=== PATIENT | female | born 1975 | race Hispanic/Latino ===

== ENCOUNTER 2021-11-07 14:15 | Emergency (ER) | payer OTHER, SELFPAY ==
--- OUTSIDE RECORDS SUMMARY | 2021-11-07 14:22 | XMS REPORT | Continuity of Care Document ---
:1975 Author Organization [facility] [place] [facility] t Address [address] Russell [address] [place] [id number] Care Team Providers Name Role Phone Unavailable Unavailable Unavailable Problems This patient has no known problems. Allergies, Adverse Reactions, Alerts This patient has no known allergies or adverse reactions. Medications This patient has no known medications. Procedures This patient has no known procedures. Results This patient has no known results.
--- NOTE | 2021-11-07 17:18 | ER ---
Nurse's Notes [facility] Name: Marva Becerra Age: 46 yrs Sex: Female : 1975 Arrival Date: 11/07/2021 Time: 14:20 Bed DIS3 Private MD: Diagnosis: SARS-associated coronavirus as the cause of diseases classified elsewhere Presentation: 11/07 14:38 Chief complaint: Patient states: Cough, diarrhea, nausea X 1 day. Coronavirus screen: ld1 Client presents with at least one sign or symptom that may indicate coronavirus-19. Standard/surgical mask placed on the client. Ebola Screen: No symptoms or risks identified at this time. Initial Sepsis Screen: Does the patient meet any 2 criteria? No. Patient's initial sepsis screen is negative. Does the patient have a suspected source of infection? No. Patient's initial sepsis screen is negative. Risk Assessment: Do you want to hurt yourself or someone else? Patient reports no desire to harm self or others. Onset of symptoms was November 07, 2021. 14:38 Method Of Arrival: Ambulatory ld1 14:38 Acuity: LETICIA 4 ld1 Triage Assessment: 14:39 General: Appears in no apparent distress. comfortable, Behavior is calm, cooperative, ld1 appropriate for age. Pain: Denies pain. EENT: No signs and/or symptoms were reported regarding the EENT system. Neuro: Level of Consciousness is awake, alert, obeys commands, Oriented to person, place, time, situation. Cardiovascular: Capillary refill < 3 seconds Patient's skin is warm and dry. Respiratory: Airway is patent Respiratory effort is even, unlabored. GI: Abdomen is round non-distended. : No signs and/or symptoms were reported regarding the genitourinary system. Derm: No signs and/or symptoms reported regarding the dermatologic system. Musculoskeletal: No signs and/or symptoms reported regarding the musculoskeletal system. [employer]: 14:39 LMP 11/07/2021 ld1 Historical: - Allergies: 14:39 No Known Allergies; ld1 - Home Meds: 14:39 None [Active]; ld1 - PMHx: 14:39 None; ld1 - PSHx: 14:39 tubal ligation; ld1 - Immunization history:: Adult Immunizations up to date, Client reports having NOT received the Covid vaccine. - Social history:: Smoking status: Patient reports the use of cigarette tobacco products, smokes one-half pack cigarettes per day, Patient/guardian denies using alcohol. Screenin:30 Abuse screen: Denies threats or abuse. Denies injuries from another. Nutritional ss screening: No deficits noted. Tuberculosis screening: Never had TB. Fall Risk None identified. Assessment: 17:30 General: Appears in no apparent distress. comfortable, Behavior is calm, cooperative, ss Denies fever. Neuro: Level of Consciousness is awake, alert, obeys commands, Oriented to person, place, time, situation. Respiratory: Airway is patent Respiratory effort is even, unlabored, Respiratory pattern is regular, symmetrical. EENT: Oral mucosa is moist. Derm: Skin is intact, is healthy with good turgor, Skin is pink, warm \\T\\ dry. normal. Vital Signs: 14:38 BP 153 / 93; Pulse 105; Resp 18; Temp 97.5(TE); Pulse Ox 96% on R/A; Weight 113.4 kg; ld1 Height 5 ft. 3 in. (160.02 cm); Pain 0/10; 14:38 Body Mass Index 44.29 (113.40 kg, 160.02 cm) ld1 ED Course: 14:20 Patient arrived in ED. am2 14:27 Rogers Cross PA is PHCP. cp 14:27 Spike Bashir MD is Attending Physician. cp 14:39 Triage completed. ld1 14:39 Arm band placed on right wrist. ld1 14:41 COVID-19 SARS RT PCR (Document "Date of Onset" if Symptomatic) Sent. ld1 17:30 Patient has correct armband on for positive identification. ss 17:50 Rakel Marroquin, RN is Primary Nurse. ss 18:04 No provider procedures requiring assistance completed. Patient did not have IV access ss during this emergency room visit. Administered Medications: No medications were administered Medication: 17:30 VIS not applicable for this client. ss Outcome: 17:18 Discharge ordered by . cp 17:30 Discharged to home ambulatory, with family. ss 17:30 Condition: good 17:30 Discharge instructions given to patient, Instructed on discharge instructions, follow up and referral plans. Demonstrated understanding of instructions, follow-up care. 18:06 Patient left the ED. ss Signatures: Rakel Marroquin RN RN ss Rogers Cross PA PA cp Moreno, Amanda amTrisha Ventura RN RN ld1 Corrections: (The following items were deleted from the chart) 14:40 14:39 PSHx: None; ld1 ld1
--- NOTE | 2021-11-07 17:18 | EDPHYS ---
Physician Documentation [facility] Name: Marva Becerra Age: 46 yrs Sex: Female : 1975 Arrival Date: 11/07/2021 Time: 14:20 Bed DIS3 Private MD: ED Physician Spike Bashir HPI: 11/07 17:00 This 46 yrs old Female presents to ER via Ambulatory with complaints of Cough. cp 17:00 The patient or guardian reports cough, that is intermittent. cp 17:00 Onset: The symptoms/episode began/occurred 1 day(s) ago. Associated signs and symptoms: cp Pertinent positives: diarrhea, cough, Pertinent negatives: chest pain, fever, vomiting. HEALTH WORKERS: 14:39 LMP 11/07/2021 ld1 Historical: - Allergies: 14:39 No Known Allergies; ld1 - Home Meds: 14:39 None [Active]; ld1 - PMHx: 14:39 None; ld1 - PSHx: 14:39 tubal ligation; ld1 - Immunization history:: Adult Immunizations up to date, Client reports having NOT received the Covid vaccine. - Social history:: Smoking status: Patient reports the use of cigarette tobacco products, smokes one-half pack cigarettes per day, Patient/guardian denies using alcohol. ROS: 17:05 Constitutional: Negative for fever, poor PO intake. cp 17:05 Eyes: Negative for injury, pain, redness, and discharge. cp 17:05 ENT: Negative for drainage from ear(s), ear pain, sore throat, difficulty swallowing, difficulty handling secretions. 17:05 Cardiovascular: Negative for chest pain. 17:05 Respiratory: Positive for cough, Negative for shortness of breath, wheezing. 17:05 Abdomen/GI: Positive for diarrhea, Negative for abdominal pain, vomiting. 17:05 Neuro: Negative for altered mental status, dizziness, headache, numbness, weakness. 17:05 All other systems are negative. Exam: 17:10 Constitutional: The patient appears in no acute distress, alert, awake, cp non-diaphoretic, non-toxic, well developed, well nourished. 17:10 Head/Face: Normocephalic, atraumatic. cp 17:10 Eyes: Periorbital structures: appear normal, Conjunctiva: normal, no exudate, no injection, Lids and lashes: appear normal, bilaterally. 17:10 ENT: External ear(s): are unremarkable, Nose: is normal, Mouth: Lips: moist, Oral mucosa: moist, Posterior pharynx: Airway: no evidence of obstruction, patent. 17:10 Neck: ROM/movement: is normal, is supple, without pain, no range of motions limitations, no meningismus. 17:10 Chest/axilla: Inspection: normal. 17:10 Cardiovascular: Rate: tachycardic, Rhythm: regular. 17:10 Respiratory: the patient does not display signs of respiratory distress, Respirations: normal, no use of accessory muscles, no retractions, labored breathing, is not present, Breath sounds: are clear throughout, no decreased breath sounds, no stridor, no wheezing. 17:10 Abdomen/GI: Exam negative for discomfort, distension, guarding, Inspection: abdomen appears normal. Vital Signs: 14:38 BP 153 / 93; Pulse 105; Resp 18; Temp 97.5(TE); Pulse Ox 96% on R/A; Weight 113.4 kg; ld1 Height 5 ft. 3 in. (160.02 cm); Pain 0/10; 14:38 Body Mass Index 44.29 (113.40 kg, 160.02 cm) ld1 MDM: 16:57 Patient medically screened. cp 17:18 Data reviewed: vital signs, nurses notes, lab test result(s). cp 17:18 Counseling: I had a detailed discussion with the patient and/or guardian regarding: the cp historical points, exam findings, and any diagnostic results supporting the discharge/admit diagnosis, lab results, to return to the emergency department if symptoms worsen or persist or if there are any questions or concerns that arise at home. ED course: VSS. Patient appears non-toxic and no signs of respiratory distress. Patient declines any treatment with IV antibodies at this time. Will discharge to home to quarantine and symptomatic treatment. 11/07 14:38 Order name: COVID-19 SARS RT PCR (Document "Date of Onset" if Symptomatic); Complete ld1 Time: 16:59 Administered Medications: No medications were administered Disposition: 18:47 Co-signature as Attending Physician, Spike Bahsir MD I agree with the assessment and kdr plan of care. Disposition Summary: 11/07/21 17:18 Discharge Ordered Location: Home cp Problem: new cp Symptoms: are unchanged cp Condition: Stable cp Diagnosis - SARS-associated coronavirus as the cause of diseases classified elsewhere cp Followup: cp - With: Private Physician - When: 2 - 3 days - Reason: Worsening of condition Discharge Instructions: - Discharge Summary Sheet cp - Aspirin and Your Heart cp - COVID-19 cp - Things to Know about the COVID-19 Pandemic - [facility] cp - 10 Things You Can Do to Manage Your COVID-19 Symptoms at Home - [facility] cp - COVID-19: Quarantine vs. Isolation - [facility] cp - Prevent the Spread of COVID-19 if You Are Sick - [facility] cp Forms: - Medication Reconciliation Form cp - Thank You Letter cp - Antibiotic Education cp - Prescription Opioid Use cp Signatures: Dispatcher [employer] EDMS Spike Bashir MD MD [facility] Rogers Cross PA PA cp Trisha Velazco RN RN ld1 Corrections: (The following items were deleted from the chart) 14:40 14:39 PSHx: None; ld1 ld1
[2021-11-07 18:14] VITALS: BP 153/93; TEMP 97.5; O2SAT 96
== END 2021-11-07 18:06 | disposition home or self-care (01) ==
LOC: ER 14:15
DX: U07.1 COVID-19 (principal); F17.210 Nicotine dependence, cigarettes, uncomplicated
CPT/HCPCS: 99283; U0003

== ENCOUNTER 2021-11-27 06:00 | Emergency (ER) | payer OTHER ==
--- OUTSIDE RECORDS SUMMARY | 2021-11-27 06:03 | XMS REPORT | Continuity of Care Document ---
:1975 Author Organization [facility] t Address [address] [place] [address] Dr. Russell [address] [place] [id number] Care Team Providers Name Role Phone Unavailable Unavailable Unavailable Problems This patient has no known problems. Allergies, Adverse Reactions, Alerts This patient has no known allergies or adverse reactions. Medications This patient has no known medications. Procedures This patient has no known procedures. Results This patient has no known results.
[2021-11-27 07:00] LABS: Urine Blood 1+ (Negative); Urine Glucose Negative (Negative); Urine Protein 1+ (Negative); Urine pH 5.5 (5.0-7.0)
[2021-11-27 07:07] LABS: Absolute Lymphocytes (CBC) 1.9 K/uL (0.7-4.9); Hematocrit 31.6 % (36.0-45.0); Lymphocytes % 14.1 % (15.3-44.8); MPV 8.7 fL (7.6-11.3); RBC Red Blood Cell Count 4.87 M/uL (3.86-4.86)
[2021-11-27 07:26] LABS: Urine Bacteria 20-50 /HPF (<20); Urine RBC <5 /HPF (NONE SEEN)
[2021-11-27 07:29] LABS: Albumin 3.4 g/dL (3.4-5.0); Bilirubin Total 0.3 mg/dL (0.2-1.0); Potassium 4.1 mmol/L (3.5-5.1); Protein, Total 8.1 g/dL (6.4-8.2)
[2021-11-27] MEDS ORDERED: KETOROLAC 30 MG/ML INJ ONE (07:37)
[2021-11-27] MEDS ORDERED: ONDANSETRON 4 MG/2 ML VIAL ONE (07:37)
[2021-11-27] MEDS ORDERED: NA CHLORIDE 0.9% 100 ML ONE (07:37)
[2021-11-27] MEDS ORDERED: CEFTRIAXONE 1000 MG/VIAL ONE (07:37)
--- NOTE | 2021-11-27 08:03 | RAD REPORT ---
EXAM DESCRIPTION: CT - Stone Protocol - 11/27/2021 7:38 am CLINICAL HISTORY: Abdominal pain. COMPARISON: None. TECHNIQUE: Computed axial tomography of the abdomen pelvis was obtained without oral or IV contrast. Lack of IV and oral contrast limits evaluation of solid organs, bowel, and vessels. Coronal reformat ulises images were obtained and reviewed. All CT scans are performed using dose optimization technique as appropriate and may include automated exposure control or mA/KV adjustment according to patient size. FINDINGS: A renal calculus is not seen. An ureteral calculus is not noted. A bladder calculus is not present. Hepatomegaly. Liver contains fatty infiltration. Spleen, pancreas and adrenals appear grossly normal There is no evidence of diverticulitis. The appendix appears normal No adnexal mass. Bulky uterus IMPRESSION: Negative for a genitourinary calculus Hepatomegaly with fatty infiltration
[2021-11-27] MEDS ORDERED: CIPROFLOXACIN HCL 500 MG TAB ONE (08:51)
[2021-11-27] MEDS ORDERED: PANTOPRAZOLE 40 MG INJ ONE (08:51)
--- NOTE | 2021-11-27 08:51 | RAD REPORT ---
EXAM DESCRIPTION: US - Abdomen Exam Limited - 11/27/2021 8:32 am CLINICAL HISTORY: Abdominal pain. COMPARISON: None. FINDINGS: The gallbladder wall is not thickened. A gallstone is not seen. The biliary tree is normal caliber. IMPRESSION: Unremarkable gallbladder ultrasound.
--- NOTE | 2021-11-27 08:53 | EDPHYS ---
Physician Documentation [facility] Name: Marva Becerra Age: 46 yrs Sex: Female : 1975 Arrival Date: 11/27/2021 Time: 06:03 Bed 14 Private MD: ED Physician Rogers Felix HPI: 11/27 08:30 This 46 yrs old Female presents to ER via Ambulatory with complaints of lucius Abdominal Pain, Epigastric Pain. 08:30 The patient presents with abdominal pain in the epigastric area, right lower quadrant, lucius abdominal distention in the upper abdomen, in the lower abdomen. Onset: The symptoms/episode began/occurred 1 day(s) ago. The symptoms do not radiate. Associated signs and symptoms: none. The symptoms are described as crampy. Modifying factors: The symptoms are alleviated by nothing, the symptoms are aggravated by food, nothing. Severity of pain: At its worst the pain was mild moderate in the emergency department the pain has improved mildly. The patient has experienced similar episodes in the past, several times. DIAGNOSTIC TECH: 06:49 LMP 11/07/2021 sm5 Historical: - Allergies: 06:47 No Known Allergies; sm5 - Home Meds: 06:47 None [Active]; sm5 - PSHx: 06:47 tubal ligation; sm5 - Immunization history:: Client reports having NOT received the Covid vaccine. - Social history:: Smoking status: Patient reports the use of cigarette tobacco products. - Family history:: not pertinent. ROS: 08:30 Constitutional: Negative for fever, chills, and weight loss, Eyes: Negative for injury, lucius pain, redness, and discharge, ENT: Negative for injury, pain, and discharge, Neck: Negative for injury, pain, and swelling, Cardiovascular: Negative for chest pain, palpitations, and edema, Respiratory: Negative for shortness of breath, cough, wheezing, and pleuritic chest pain, Back: Negative for injury and pain, : Negative for injury, bleeding, discharge, and swelling, MS/Extremity: Negative for injury and deformity, Skin: Negative for injury, rash, and discoloration, Neuro: Negative for headache, weakness, numbness, tingling, and seizure, Psych: Negative for depression, anxiety, suicide ideation, homicidal ideation, and hallucinations, Allergy/Immunology: Negative for hives, rash, and allergies, Endocrine: Negative for neck swelling, polydipsia, polyuria, polyphagia, and marked weight changes, Hematologic/Lymphatic: Negative for swollen nodes, abnormal bleeding, and unusual bruising. 08:30 Abdomen/GI: Positive for abdominal pain, abdominal cramps. Exam: 08:30 Constitutional: This is a well developed, well nourished patient who is awake, alert, lucius and in no acute distress. Head/Face: Normocephalic, atraumatic. Eyes: Pupils equal round and reactive to light, extra-ocular motions intact. Lids and lashes normal. Conjunctiva and sclera are non-icteric and not injected. Cornea within normal limits. Periorbital areas with no swelling, redness, or edema. ENT: Nares patent. No nasal discharge, no septal abnormalities noted. Tympanic membranes are normal and external auditory canals are clear. Oropharynx with no redness, swelling, or masses, exudates, or evidence of obstruction, uvula midline. Mucous membranes moist. Neck: Trachea midline, no thyromegaly or masses palpated, and no cervical lymphadenopathy. Supple, full range of motion without nuchal rigidity, or vertebral point tenderness. No Meningismus. Chest/axilla: Normal chest wall appearance and motion. Nontender with no deformity. No lesions are appreciated. Cardiovascular: Regular rate and rhythm with a normal S1 and S2. No gallops, murmurs, or rubs. Normal PMI, no JVD. No pulse deficits. Respiratory: Lungs have equal breath sounds bilaterally, clear to auscultation and percussion. No rales, rhonchi or wheezes noted. No increased work of breathing, no retractions or nasal flaring. Back: No spinal tenderness. No costovertebral tenderness. Full range of motion. Skin: Warm, dry with normal turgor. Normal color with no rashes, no lesions, and no evidence of cellulitis. MS/ Extremity: Pulses equal, no cyanosis. Neurovascular intact. Full, normal range of motion. Neuro: Awake and alert, GCS 15, oriented to person, place, time, and situation. Cranial nerves II-XII grossly intact. Motor strength 5/5 in all extremities. Sensory grossly intact. Cerebellar exam normal. Normal gait. 08:30 Abdomen/GI: Inspection: distension, that is mild, Bowel sounds: active, Palpation: mild abdominal tenderness, in the epigastric area, Liver: no appreciated palpable abnormalities, Hernia: not appreciated. 08:50 ECG was reviewed by the Attending Physician. [facility] Vital Signs: 06:46 BP 147 / 105; Pulse 113; Resp 18; Temp 98.9(O); Pulse Ox 97% on R/A; Weight 117.93 kg; 5 Height 5 ft. 2 in. (157.48 cm); Pain 7/10; 06:46 Body Mass Index 47.55 (117.93 kg, 157.48 cm) [facility] MDM: 07:19 Patient medically screened. [facility] 11/28 01:30 Data reviewed: vital signs, nurses notes, lab test result(s), radiologic studies. kdr Counseling: I had a detailed discussion with the patient and/or guardian regarding: the historical points, exam findings, and any diagnostic results supporting the discharge/admit diagnosis, lab results, radiology results, the need for outpatient follow up. 11/27 06:38 Order name: CBC with Diff [facility] 11/27 06:38 Order name: CMP; Complete Time: 07:58 [facility] 11/27 06:38 Order name: Lipase; Complete Time: 07:58 [facility] 11/27 07:00 Order name: Urine --Ancillary (enter results); Complete Time: 08:52 [facility] 11/27 07:00 Order name: Urine Microscopic Only; Complete Time: 07:58 [facility] 11/27 07:00 Order name: Urine Culture [facility] 11/27 07:00 Order name: Urine Dipstick-Ancillary; Complete Time: 07:20 [facility] 11/27 07:02 Order name: CT Stone Protocol; Complete Time: 08:15 as6 11/27 07:58 Order name: US Abdomen Limited; Complete Time: 09:04 [facility] 11/27 07:58 Order name: Troponin High Sensitivity; Complete Time: 08:52 [facility] 11/27 09:18 Order name: CBC Smear Scan [facility] 11/27 06:38 Order name: IV Saline Lock; Complete Time: 07:03 [facility] 11/27 06:38 Order name: Labs collected and sent; Complete Time: 07:03 [facility] 11/27 07:00 Order name: Urine Dipstick-Ancillary (obtain specimen); Complete Time: 07:00 [facility] 11/27 07:00 Order name: Urine Test (obtain specimen); Complete Time: 07:00 mw2 11/27 07:58 Order name: EKG; Complete Time: 07:59 [facility] 11/27 07:58 Order name: EKG - Nurse/Tech; Complete Time: 08:51 [facility] EC/21 08:50 Rate is 94 beats/min. Rhythm is regular. QRS Rebecca is Normal. OH interval is normal. QRS lucius interval is normal. QT interval is normal. No Q waves. T waves are Normal. No ST changes noted. Clinical impression: NSR w/ Non-specific ST/T Changes and No evidence of ischemia. Interpreted by me. Reviewed by me. Administered Medications: 07:35 Drug: Ketorolac 30 mg Route: IVP; Site: right antecubital; ww 07:39 Drug: Zofran (Ondansetron) 4 mg Route: IVP; Site: right antecubital; ww 07:43 Drug: Rocephin (cefTRIAXone) 1 grams Route: IV; Rate: per protocol; Site: right ww antecubital; 08:51 Drug: Cipro (ciprofloxacin) 500 mg Route: PO; ww 08:51 Drug: ProTONIX (pantoprazole) 40 mg Route: IVP; Site: right antecubital; Disposition Summary: 11/27/21 08:52 Discharge Ordered Location: Home lucius Problem: new lucius Symptoms: have improved lucius Condition: Stable lucius Diagnosis - Epigastric abdominal tenderness lucius - UTI/ Urinary tract infection, site not specified lucius - Obesity, unspecified lucius - Elevated white blood cell count lucius Followup: lucius - With: Private Physician - When: 2 - 3 days - Reason: Recheck today's complaints, Continuance of care, Re-evaluation by your physician Followup: lucius - With: - When: 2 - 3 days - Reason: Recheck today's complaints, Continuance of care, Re-evaluation by your physician Discharge Instructions: - Discharge Summary Sheet lucius - Dysuria lucius - Obesity, Adult lucius - Urinary Tract Infection, Adult lucius - Urinary Tract Infection, Adult, [id number] lucius - Abdominal Pain, Adult, [id number] lucius Forms: - Medication Reconciliation Form lucius - Thank You Letter lucius - Antibiotic Education lucius - Prescription Opioid Use lucius - Work release form Prescriptions: - Protonix 40 mg Oral Tablet - take 1 tablet by ORAL route once daily; 30 tablet; Refills: 0, Product [facility] Selection Permitted - Zofran 4 mg Oral Tablet - take 1 tablet by ORAL route every 12 hours As needed; 20 tablet; Refills: 0, [facility] Product Selection Permitted - Cipro 500 mg Oral Tablet - take 1 tablet by ORAL route every 12 hours for 7 days; 14 tablet; Refills: 0, [facility] Product Selection Permitted - dicyclomine 20 mg Oral Tablet - take 1 tablet by ORAL route 4 times per day; 28 tablet; Refills: 0, Product [facility] Selection Permitted Signatures: Dispatcher [employer] Rogers Purcell MD MD cha Rittger, Kevin, MD MD kdr [place], MyKena mw2 Sarah Rich RN RN sm5 Arely Moss RN RN ww
--- NOTE | 2021-11-27 08:53 | ER ---
Nurse's Notes [facility] Name: Marva Becerra Age: 46 yrs Sex: Female : 1975 Arrival Date: 11/27/2021 Time: 06:03 Bed 14 Private MD: Diagnosis: Epigastric abdominal tenderness;UTI/ Urinary tract infection, site not specified;Obesity, unspecified;Elevated white blood cell count Presentation: 11/27 06:46 Chief complaint: Patient states: she has been had mid abd pain and RLQ pain as well as sm5 pain in her back. also states when she urinates she feels a "tingle". Coronavirus screen: Vaccine status: Patient reports being unvaccinated. Ebola Screen: No symptoms or risks identified at this time. Initial Sepsis Screen: Does the patient meet any 2 criteria? HR > 90 bpm. No. Patient's initial sepsis screen is negative. Does the patient have a suspected source of infection? Yes: Acute abdominal pain. Risk Assessment: Do you want to hurt yourself or someone else? Patient reports no desire to harm self or others. Onset of symptoms was November 25, 2021. 06:46 Method Of Arrival: Ambulatory 5 06:46 Acuity: LETICIA 3 sm5 Triage Assessment: 06:48 General: Appears in no apparent distress. Behavior is cooperative. Pain: Complains of sm5 pain in back and abdomen. Neuro: No deficits noted. Level of Consciousness is awake, alert, obeys commands, Oriented to person, place, time, situation. Cardiovascular: No deficits noted. Capillary refill < 3 seconds Patient's skin is warm and dry. Respiratory: No deficits noted. Airway is patent Trachea midline Respiratory effort is even, unlabored. GI: Abdomen is obese, Reports lower abdominal pain, upper abdominal pain, Patient currently denies diarrhea, vomiting. PRIVATE PILOT: 06:49 LMP 11/07/2021 sm5 Historical: - Allergies: 06:47 No Known Allergies; sm5 - Home Meds: 06:47 None [Active]; sm5 - PSHx: 06:47 tubal ligation; sm5 - Immunization history:: Client reports having NOT received the Covid vaccine. - Social history:: Smoking status: Patient reports the use of cigarette tobacco products. - Family history:: not pertinent. Screenin:49 Abuse screen: Denies threats or abuse. Denies injuries from another. Nutritional 5 screening: No deficits noted. Tuberculosis screening: No symptoms or risk factors identified. Fall Risk None identified. Assessment: 06:49 GI: Bowel sounds present X 4 quads. Abd is soft. sm5 07:40 General: Appears in no apparent distress. Behavior is cooperative. Pain: Complains of ww pain in epigastric area, umbilical area, suprapubic area and right lower quadrant. Neuro: Guy Agitation-Sedation Scale (RASS): 0 - Alert and Calm Level of Consciousness is awake, alert, obeys commands, Oriented to person, place, time, situation, Moves all extremities. Speech is normal. Cardiovascular: Capillary refill < 3 seconds Patient's skin is warm and dry. Chest pain is denied. Respiratory: Airway is patent Respiratory effort is even, unlabored, Respiratory pattern is regular, symmetrical. GI: Abdomen is round obese, Abd is soft. : Reports burning with urination. Derm: No signs and/or symptoms reported regarding the dermatologic system. Skin is intact, is healthy with good turgor, Skin is pink, warm \\T\\ dry. 08:52 Reassessment: Patient appears in no apparent distress at this time. No changes from previously documented assessment. Patient and/or family updated on plan of care and expected duration. Pain level reassessed. Patient is alert, oriented x 3, equal unlabored respirations, skin warm/dry/pink. Vital Signs: 06:46 BP 147 / 105; Pulse 113; Resp 18; Temp 98.9(O); Pulse Ox 97% on R/A; Weight 117.93 kg; sm5 Height 5 ft. 2 in. (157.48 cm); Pain 7/10; 06:46 Body Mass Index 47.55 (117.93 kg, 157.48 cm) 5 ED Course: 06:03 Patient arrived in ED. as 06:37 Spike Bashir MD is Attending Physician. kdr 06:46 Sarah Rich, RON is Primary Nurse. 5 06:47 Triage completed. 5 06:48 Arm band placed on right wrist. 5 06:49 Patient has correct armband on for positive identification. Bed in low position. Call [facility] light in reach. Side rails up X2. Pulse ox on. NIBP on. 07:04 Inserted saline lock: 20 gauge in right antecubital area, using aseptic technique. sm5 Blood collected. 07:19 Attending Physician role handed off by Spike Bashir MD [facility] 07:19 Rogers Felix MD is Attending Physician. [facility] 07:40 CT Stone Protocol In Process Unspecified. EDMS 08:30 US Abdomen Limited In Process Unspecified. EDMS 08:52 Mateo David MD is Referral Physician. lucius 09:46 No provider procedures requiring assistance completed. IV discontinued, intact, ww bleeding controlled, No redness/swelling at site. Pressure dressing applied. Administered Medications: 07:35 Drug: Ketorolac 30 mg Route: IVP; Site: right antecubital; ww 07:39 Drug: Zofran (Ondansetron) 4 mg Route: IVP; Site: right antecubital; ww 07:43 Drug: Rocephin (cefTRIAXone) 1 grams Route: IV; Rate: per protocol; Site: right ww antecubital; 08:51 Drug: Cipro (ciprofloxacin) 500 mg Route: PO; ww 08:51 Drug: ProTONIX (pantoprazole) 40 mg Route: IVP; Site: right antecubital; ww Medication: 07:04 VIS not applicable for this client. sm5 Outcome: 08:52 Discharge ordered by . [facility] 09:46 Discharged to home ambulatory, with family. ww 09:46 Condition: stable 09:46 Discharge instructions given to patient, family, Instructed on discharge instructions, follow up and referral plans. medication usage, safety practices, Demonstrated understanding of instructions, follow-up care, medications, Prescriptions given X 4. 09:46 Patient left the ED. ww Signatures: Dispatcher [employer] Rogers Nicole MD MD cha Rittger, Kevin, MD MD kdr Martinez, Amelia as Mazur, Sarah RN RN 5 Arely Moss RN RN dillon
[2021-11-27 09:17] LABS: Anisocytosis 1+; Blood Morphology Comment NOTED (NOT SEEN); Platelet Estimate ADEQ; Polychromasia SLIGHT; White Blood Cell Scan OK (OK)
[2021-11-27 09:57] VITALS: BP 147/105; TEMP 98.9; O2SAT 97
--- NOTE | 2021-11-28 07:22 | EKG ---
Test Date: 2021-11-27 Test Time: 08:36:54 Analytical Chemist: JACOBO MEASUREMENT RESULTS: Intervals: Rate: 94 MD: 134 QRSD: 86 QT: 352 QTc: 440 [place]: P: 60 MD: 134 QRS: -32 T: 12 INTERPRETIVE STATEMENTS: Normal sinus rhythm Left axis deviation Cannot rule out Anterior infarct, age undetermined Abnormal ECG No previous ECG available for comparison Electronically Signed On 11-28-21 07:17:50 CDT by Kane Huynh
== END 2021-11-27 09:46 | disposition home or self-care (01) ==
LOC: ER 06:00
DX: N39.0 Urinary tract infection, site not specified (principal); D72.829 Elevated white blood cell count, unspecified; E66.9 Obesity, unspecified; Z68.42 Body mass index [BMI] 45.0-49.9, adult; Z72.0 Tobacco use
CPT/HCPCS: 93005; 87088; 85025; 87086; 36415; 81025; 84484; 83690; 80053; 76377; 74176; 76705; 96375; 96374; 99284; C9113; J2405; 81003; 81015; 87077; 87186

== ENCOUNTER 2025-04-03 12:11 | Emergency (ER) | payer OTHER, SELFPAY ==
[2025-04-03] MEDS ORDERED: KETOROLAC 30 MG/ML INJ ONE (13:20)
[2025-04-03] MEDS ORDERED: CYCLOBENZAPRINE 10 MG TAB ONE (13:21)
[2025-04-03] MEDS ORDERED: HYDROCODONE/APAP 5/325 MG TAB ONE (13:21)
--- NOTE | 2025-04-03 14:08 | EDPHYS ---
Physician Documentation [facility] Name: Marva Becerra Age: 50 yrs Sex: Female : 1975 Arrival Date: 04/03/2025 Time: 12:11 Bed 19 Private MD: ED Physician Des Mercado HPI: 04/03 16:04 This 50 yrs old Female presents to ER via Ambulatory with complaints of Back dr5 Pain. 16:04 The patient presents with pain that is acute. The symptoms are located in the low back. dr5 Onset: The symptoms/episode began/occurred 4 day(s) ago. Patient is a 50-year-old female with history of diabetes and hypertension coming in with right lower back pain has been going on for the past 4 days. Patient denies perirectal numbness, bowel or bladder incontinence, numbness tingling to bilateral lower legs. Patient reports that pain comes and goes and worsens when she does heavy lifting or lots of movement.. Historical: - Allergies: 12:17 No Known Drug Allergies; ll1 - PMHx: 12:17 Diabetes mellitus; Hypertensive disorder; ll1 - PSHx: 12:17 tubal ligation; hysterectomy (tubal ligation); fibroid removed (tubal ligation); ll1 - Immunization history:: Adult Immunizations up to date. - Infectious Disease History:: Denies. - Social history:: Smoking status: Patient reports the use of cigarette tobacco products, smokes .25 packs per day. ROS: 16:04 Constitutional: as per hpi dr5 Exam: 16:04 Constitutional: This is a well developed, well nourished patient who is awake, alert, dr5 and in no acute distress. Head/Face: Normocephalic, atraumatic. Eyes: Pupils equal round and reactive to light, extra-ocular motions intact. Lids and lashes normal. Conjunctiva and sclera are non-icteric and not injected. Cornea within normal limits. Periorbital areas with no swelling, redness, or edema. 16:07 Chest/axilla: Normal chest wall appearance and motion. Nontender with no deformity. dr5 No lesions are appreciated. Cardiovascular: Regular rate and rhythm with a normal S1 and S2. Normal PMI, no JVD. No pulse deficits. Respiratory: Lungs have equal breath sounds bilaterally, clear to auscultation. No rales, rhonchi or wheezes noted. No increased work of breathing, no retractions or nasal flaring. Skin: Warm, dry with normal turgor. Normal color with no rashes, no lesions, and no evidence of cellulitis. MS/ Extremity: Pulses equal, no cyanosis. Neurovascular intact. Full, normal range of motion. Neuro: Awake and alert, GCS 15, oriented to person, place, time, and situation. Cranial nerves II-XII grossly intact. Motor strength 5/5 in all extremities. Sensory grossly intact. Cerebellar exam normal. Normal gait. 16:07 Back: pain, that is mild, of the right low back, ROM is normal, normal spinal alignment noted, CVA tenderness, is absent, 16:09 Neuro: Exam negative for acute changes, dr5 Vital Signs: 12:18 BP 149 / 95; Pulse 107; Resp 17; Temp 98.2; Pulse Ox 97% ; Weight 122.47 kg; Height 5 ll1 ft. 3 in. ; Pain 9/10; 14:30 BP 136 / 82; Pulse 91; Resp 18; Temp 97.9; Pulse Ox 98% on R/A; ph 12:18 Body Mass Index 47.83 (122.47 kg, 160.02 cm) ll1 12:18 Pain Scale: Adult ll1 MDM: 12:15 Medical Screening Exam initiated dr5 16:07 Differential diagnosis: arthritis, Fatigue Osteoarthritis Osteoporosis vertebral dr5 fracture. Data reviewed: vital signs, nurses notes. Consideration of Admission/Observation Escalation considered patient found to have back pain red flags such as bowel or bladder incontinence. I considered the following discharge prescriptions or medication management in the emergency department I discussed and recommended Over The Counter medications, Medications were administered in the Emergency Department. See MAR. Test considered but Not performed: X-ray: X-ray considered but patient has no falls or trauma. Care significantly affected by the following chronic conditions: Diabetes, Hypertension. Care significantly affected by the following Social Determinants of Health: Poor access to healthcare and/or lack of insurance, Poor access to transportation, Problems related to employment. Counseling: I had a detailed discussion with the patient and/or guardian regarding the historical points, exam findings, and any diagnostic results supporting the discharge/admit diagnosis, the presence of at least one elevated blood pressure reading (>120/80) during this emergency department visit, the need for outpatient follow up, for definitive care, a family practitioner, a orthopedic surgeon, to return to the emergency department if symptoms worsen or persist or if there are any questions or concerns that arise at home. Medication response: Toradol, dexamethasone, [place]. Response to treatment: the patient's symptoms have markedly improved after treatment. Special discussion: I discussed with the patient/guardian in detail that at this point there is no indication for admission to the hospital. It is understood, however, that if the symptoms persist or worsen the patient needs to return immediately for re-evaluation. Based on the history and exam findings, there is no indication for further emergent testing or inpatient evaluation. I discussed with the patient/guardian the need to see the orthopedic surgeon for further evaluation of the symptoms. I discussed with the patient/guardian the need to see the primary care provider for further evaluation of the symptoms. ED course: Will patient follow-up primary care doctor this week. Patient reports feeling much better after medication. Will give patient Flexeril and pain medication and follow-up this week. All question answered. Strict ER precautions given. Administered Medications: 13:33 Drug: Dexamethasone IM 10 mg IM once Route: IM; Site: right deltoid; cc6 14:17 Follow up: Response: No adverse reaction; RASS: Alert and Calm (0) cc6 14:22 Follow up: Response: No adverse reaction cc6 13:33 Drug: HYDROcodone-acetaminophen PO 5 mg-325 mg 2 tabs PO once Route: PO; cc6 14:17 Follow up: Response: No adverse reaction; Pain is decreased; RASS: Alert and Calm (0) cc6 13:33 Drug: Cyclobenzaprine PO 10 mg PO once Route: PO; cc6 14:16 Follow up: Response: No adverse reaction cc6 13:33 Drug: Ketorolac IM 30 mg IM once Route: IM; Site: right deltoid; cc6 14:16 Follow up: Response: No adverse reaction; Pain is decreased; RASS: Alert and Calm (0) cc6 Disposition: 17:53 Co-signature as Attending Physician, Des Mercado MD I reviewed the patient's care rn provided by the Advanced Practice Provider and agree with the diagnosis and treatment plan. Disposition Summary: 04/03/25 14:08 Discharge Ordered Notes: Location: Home dr5 Condition: Stable dr5 Diagnosis - Low back pain dr5 Followup: dr5 - With: Emergency Department - When: As needed - Reason: Worsening of condition Followup: dr5 - With: Private Physician - When: 1 - 2 days - Reason: Recheck today's complaints, Continuance of care, Re-evaluation by your physician Discharge Instructions: - Discharge Summary Sheet dr5 - Musculoskeletal Pain dr5 Forms: - Medication Reconciliation Form dr5 - Prescription Opioid Use dr5 - Patient Portal Instructions dr5 - Leadership Thank You Letter dr5 Prescriptions: - Cyclobenzaprine 10 mg Oral Tablet - take 1 tablet ORAL route every 8 hours As needed; 30 tablet; Refills: 0, dr5 Product Selection Permitted - Tramadol 50 mg Oral Tablet - take 1 tablet ORAL route every 8 hours as needed; 12 tablet; Refills: 0, dr5 Product Selection Permitted - Medrol (Zane) 4 mg Oral Tablets, Dose Pack - take 1 tablet ORAL route as directed - follow package instructions; 1 packet; dr5 Refills: 0, Product Selection Permitted Signatures: Des Mercado MD MD rn Hall, Patricia, RN RN Chago Machado RN RN ll1 Angie Medrano RN RN cc6 Thomas Solares, WIRELESS MANAGER-C WIRELESS MANAGER-Cdr5
--- NOTE | 2025-04-03 14:08 | ER ---
Nurse's Notes [facility] Name: Marva Becerra Age: 50 yrs Sex: Female : 1975 Arrival Date: 04/03/2025 Time: 12:11 Bed 19 Private MD: Diagnosis: Low back pain Presentation: 04/03 12:18 Chief complaint: Patient states: Low back pain for 4 days. No trauma or falls. No ll1 urinary symptoms. Coronavirus screen: Client denies travel out of the [place] in the last 14 days. At this time, the client does not indicate any symptoms associated with coronavirus-19. Ebola Screen: Patient denies travel to an Ebola-affected area in the 21 days before illness onset. Initial Sepsis Screen: Does the patient meet any 2 criteria? No. Patient's initial sepsis screen is negative. Does the patient have a suspected source of infection? No. Patient's initial sepsis screen is negative. Risk Assessment: Do you want to hurt yourself or someone else? Patient reports no desire to harm self or others. Onset of symptoms was March 11, 2025. 12:18 Method Of Arrival: Ambulatory ll1 12:18 Acuity: LETICIA 4 ll1 Triage Assessment: 12:18 General: Appears uncomfortable, Behavior is calm, cooperative, appropriate for age. ll1 Pain: Complains of pain in back Quality of pain is described as aching, crampy. Musculoskeletal: Reports pain in back. Historical: - Allergies: 12:17 No Known Drug Allergies; ll1 - PMHx: 12:17 Diabetes mellitus; Hypertensive disorder; ll1 - PSHx: 12:17 tubal ligation; hysterectomy (tubal ligation); fibroid removed (tubal ligation); ll1 - Immunization history:: Adult Immunizations up to date. - Infectious Disease History:: Denies. - Social history:: Smoking status: Patient reports the use of cigarette tobacco products, smokes .25 packs per day. Screenin:29 [facility] ED Fall Risk Assessment (Adult) History of falling in the last 3 months, ph including since admission No falls in past 3 months (0 pts) Confusion or Disorientation No (0 pts) Intoxicated or Sedated No (0 pts) Impaired Gait No (0 pts) Mobility Assist Device Used No (0 pt) Altered Elimination No (0 pt) Score/Fall Risk Level 0 - 2 = Low Risk Oriented to surroundings, Maintained a safe environment, Hourly rounding (assess needs \T\ fall precautionary measures) done. Abuse screen: Denies threats or abuse. Denies injuries from another. Nutritional screening: No deficits noted. Tuberculosis screening: No symptoms or risk factors identified. Assessment: 13:25 General: Appears in no apparent distress. uncomfortable, Behavior is calm, cooperative, cc6 appropriate for age. Pain: Complains of pain in right low back Pain does not radiate. Pain currently is 8 out of 10 on a pain scale. Quality of pain is described as Pain began 2-3 days ago. Neuro: Level of Consciousness is awake, alert, obeys commands, Oriented to person, place, time, situation, Appropriate for age. Cardiovascular: Capillary refill < 3 seconds Patient's skin is warm and dry. Respiratory: Airway is patent Respiratory effort is even, unlabored, Respiratory pattern is regular, symmetrical. GI: No signs and/or symptoms were reported involving the gastrointestinal system. : No signs and/or symptoms were reported regarding the genitourinary system. EENT: No signs and/or symptoms were reported regarding the EENT system. Derm: No signs and/or symptoms reported regarding the dermatologic system. Musculoskeletal: No signs and/or symptoms reported regarding the musculoskeletal system. Vital Signs: 12:18 BP 149 / 95; Pulse 107; Resp 17; Temp 98.2; Pulse Ox 97% ; Weight 122.47 kg; Height 5 ll1 ft. 3 in. ; Pain 9/10; 14:30 BP 136 / 82; Pulse 91; Resp 18; Temp 97.9; Pulse Ox 98% on R/A; ph 12:18 Body Mass Index 47.83 (122.47 kg, 160.02 cm) ll1 12:18 Pain Scale: Adult ll1 ED Course: 12:14 Patient arrived in ED. al6 12:15 Thomas Solares [facility]C [facility]5 12:15 Des Mercado MD is Attending Physician. dr5 12:20 Triage completed. ll1 13:19 Arm band placed on Patient placed in an exam room, on a stretcher. ll1 13:30 Patient has correct armband on for positive identification. Bed in low position. Call ph light in reach. Side rails up X 1. Pulse ox on. NIBP on. Door closed. Noise minimized. 14:07 Angie Medrano, RN is Primary Nurse. cc6 14:30 No provider procedures requiring assistance completed. Patient did not have IV access ph during this emergency room visit. Administered Medications: 13:33 Drug: Dexamethasone IM 10 mg IM once Route: IM; Site: right deltoid; cc6 14:17 Follow up: Response: No adverse reaction; RASS: Alert and Calm (0) cc6 14:22 Follow up: Response: No adverse reaction cc6 13:33 Drug: HYDROcodone-acetaminophen PO 5 mg-325 mg 2 tabs PO once Route: PO; cc6 14:17 Follow up: Response: No adverse reaction; Pain is decreased; RASS: Alert and Calm (0) cc6 13:33 Drug: Cyclobenzaprine PO 10 mg PO once Route: PO; cc6 14:16 Follow up: Response: No adverse reaction cc6 13:33 Drug: Ketorolac IM 30 mg IM once Route: IM; Site: right deltoid; cc6 14:16 Follow up: Response: No adverse reaction; Pain is decreased; RASS: Alert and Calm (0) cc6 Medication: 14:29 VIS not applicable for this client. ph Outcome: 14:08 Discharge ordered by . dr5 14:30 Discharged to home ambulatory, ph 14:30 Condition: good 14:30 Discharge instructions given to patient, Instructed on discharge instructions, follow up and referral plans. medication usage, Demonstrated understanding of instructions, follow-up care, medications, Prescriptions given X 3, 14:31 Patient left the ED. ph Signatures: Lien Majano RN RN Chago Machado RN RN ll1 Angie Medrano, RN RN cc6 Thomas Solares, FIORDALIZA-C [employer] BENCH ASSEMBLER-5 Remedios Lamas
[2025-04-03 15:20] VITALS: BP 136/82; TEMP 97.9; O2SAT 98
== END 2025-04-03 14:31 | disposition home or self-care (01) ==
LOC: ER 12:11
DX: M54.50 Low back pain, unspecified (principal)
CPT/HCPCS: 96372; 99284; J1100; J1885